=== PATIENT | male | born 1965 | race Caucasian/White ===

== ENCOUNTER 2020-03-12 11:38 | Inpatient (IN) ==
[2020-03-12] MEDS ORDERED: ASPIRIN CHEW 324 MG PO STA (12:04)
[2020-03-12] MEDS ORDERED: MoRPHine SULFATE 4 MG/ML 1 ML CARP\\VIAL IV STA (12:04)
[2020-03-12] MEDS ORDERED: ONDANSETRON INJ 2 MG/ML 2 ML VIAL IV STA (12:04)
[2020-03-12] MEDS ORDERED: METOPROLOL TARTRATE 1 MG/ML VIAL IV STA ×2 (12:04→13:13)
--- NOTE | 2020-03-12 12:06 | Emergency Department Note ---
Impression & Plan Chest pain, Abnormal ECG, Elevated troponin I level, Hypertension, NSTEMI (non- ST elevated myocardial infarction) ED Provider Note NAME: TERESSA JALLOH AGE: 55 SEX: M : 1965 ARRIVES VIA: Walk-In INFORMANT: Patient, ED PROVIDER(S): Dwayne Dinero DO CHIEF COMPLAINT: Chest pain HPI: The patient is a 55-year-old male who presented to the emergency department for an evaluation of chest pain. The patient states that he has been experiencing left-sided chest pain for the last 3 months. He notices this pain is intermittent. He states the pain is on his left upper chest and radiates to his left axilla left arm and left neck. Recently he started to notice a headache behind his left eye with this chest pain. The pain is worsened with exertion. It is sometimes relieved with rest. The patient also notices that the pain is in his left upper back as well. He notices no nausea or vomiting. He has no shortness of breath. He is noticed no leg swelling or leg pain. The patient is not been seen by his primary care physician for these complaints. He has no heart conditions as far as he knows. He does take medication for high blood pressure and states that he has been compliant with his medication. He states his pain is mild to moderate at this time. He did not take any medication specifically for the chest pain. ROS: See above HPI for pertinent positives & negatives. A total of 10 systems reviewed and were otherwise negative. PAST MEDICAL HISTORY: See Below PAST SURGICAL HISTORY: See Below FAMILY HISTORY: See Below SOCIAL HISTORY: See Below HOME MEDICATIONS: See Below ALLERGIES: See Below VITALS: See Below PHYSICAL EXAMINATION: GENERAL: Patient is awake alert in no acute distress patient is resting comfortably and showing no signs of anxiety EYES: The conjunctivae are clear. The pupils are round and reactive. EARS, NOSE, MOUTH AND THROAT: The nose is without any evidence of any deformity. NECK: The neck is nontender and supple. RESPIRATORY: Normal respiratory effort is noted there is no evidence of wheezing rhonchi or rales CARDIOVASCULAR: Regular rate and rhythm noted there no murmurs rubs or gallops normal S1 normal S2. GASTROINTESTINAL: The abdomen is soft. Abdomen is nontender. MUSCULOSKELETAL/EXTREMITIES: There is no evidence of gross deformity full range of motion is noted in the hips and shoulders. SKIN: There is no obvious evidence of any rash. There are no petechiae, pallor or cyanosis noted. NEUROLOGIC: Patient is awake alert and oriented x3 strength is symmetric patellar reflexes are 2+ bilaterally MEDICAL DECISION MAKING: The patient is a 55-year-old male who presented to the emergency department for an evaluation of chest pain. The patient describes exertional left-sided chest pain which he has been experiencing for the last few months. The patient states the symptoms are starting to become worse and started to notice some with exertion. He started to notice his blood pressure was also very elevated. The patient complained of headache as well. I discussed the patient's laboratory and radiographic studies with him. He was treated with aspirin beta-blockers as well as pain medication in the emergency department. He was reevaluated multiple times. On subsequent reevaluation his symptoms were improved. The patient appeared to have a very abnormal EKG with some ischemic changes but also could be attributed to a strain pattern from LVH. His chest x-ray appeared to be consistent with cardiomegaly as well. I discussed his case with the on-call [facility] carpenter's helper. I also notified the [facility] hospitalist about this patient's condition. Likely the patient will require further inpatient work-up to evaluate the cause of his symptoms. Triage Nursing notes reviewed. Prior medical records reviewed Vital Signs: reviewed and remarkable for high blood pressure Differential diagnosis: Cardiac ischemia, aortic dissection, pulmonary embolism, pneumothorax, pneumonia, pericarditis, myocarditis, esophageal rupture, GERD, cholecystitis, pancreatitis, musculoskeletal, as well as other pathologies. ER treatment provided: See below Diagnostics interpreted by me: ECG: EKG was obtained in the emergency department. My interpretation is normal sinus rhythm at 71 bpm. There is no ectopy. Lateral T wave inversions were noted. There was low lateral ST depressions as well as high lateral ST depressions noted. LVH was noted by voltage criteria. There is no previous EKG for comparison. Cardiac Monitoring: An order was placed for continuous cardiac monitoring. The monitor shows a rate of 80 with sinus rhythm. Laboratory studies: As stated above and show below. Imaging studies: See below Consultation(s): 1300: I discussed this case with Dr. Lea who is on-call for [facility] cardiology. ED COURSE: Procedures: none PDMP:reviewed and no issues Critical Care: I have personally spent greater than 45 minutes of critical care time in the direct management of this patient. This includes bedside care, interpretation of diagnostic studies, and testing, discussion with consultants, patient, and family members, and other required patient management activities. This 45 min utes is in excess of all separately billable procedures. Past Med/Surg History Medical History (Updated 03/13/20 @ 08:35 by Dwayne Dinero DO) Coronary artery disease Hypertension Surgical History (Updated 03/13/20 @ 06:49 by Kristi Cruz DO) Hx of tonsillectomy S/P coronary artery stent placement (03/12/20) JERRY to RCA Social History Smoking Status: Current every day smoker Tobacco Cessation Education Requested by Patient: No Hx Alcohol Use: No Hx Substance Use: No Preferred Language: Chinese Communication Ability: Effective Back Office Medical Assistant Required: No Beliefs That Will Affect Care: None Current Living Situation: Spouse Other Information That Helps Us Care for You: No Feels Safe at Home: Yes Safety Concerns: Feels Safe At This Time Allergies Allergies Allergy/AdvReac Type Severity Reaction Status Date / Time azithromycin Allergy Swelling Unverified 03/12/20 13:09 of Lip/Tongue/Throat Home Meds Home Medications Medication Instructions Recorded Confirmed hydrochlorothiazide 25 mg PO DAILY 03/12/20 03/12/20 losartan 100 mg PO DAILY 03/12/20 03/12/20 metoprolol tartrate 50 mg PO BID 03/12/20 03/12/20 Results & Data (ED) Vital Signs Vital Signs - 24 hr 03/12/20 11:48 03/12/20 12:08 03/12/20 12:11 Temperature 37 C Temperature Source Oral Pulse Rate 71 71 Pulse Rate [Right Finger] Pulse Rate from SpO2 Sensor Respiratory Rate 16 Respiratory Effort / Characteristics Respiratory Depth Respiratory Pattern Blood Pressure 200/123 H 202/126 H Blood Pressure [Right Arm] Blood Pressure Mean 148 Blood Pressure Mean [Right Arm] Pulse Oximetry 95 96 Oxygen Delivery Method Room Air Room Air Sepsis Recent Fever Within 48 Hours No Sepsis New/Unexplained Change in Mental Status No Sepsis Action Taken by Nursing No Action Required 03/12/20 12:21 03/12/20 12:34 03/12/20 12:35 Temperature Temperature Source Pulse Rate 64 Pulse Rate [Right Finger] 70 Pulse Rate from SpO2 Sensor 66 Respiratory Rate 19 20 Respiratory Effort / Characteristics Non-Labored Respiratory Depth Normal Respiratory Pattern Blood Pressure 180/114 H 176/110 H Blood Pressure [Right Arm] 176/110 H Blood Pressure Mean 138 118 Blood Pressure Mean [Right Arm] 132 Pulse Oximetry 95 95 Oxygen Delivery Method Room Air Sepsis Recent Fever Within 48 Hours Sepsis New/Unexplained Change in Mental Status Sepsis Action Taken by Nursing 03/12/20 13:08 03/12/20 13:23 03/12/20 13:25 Temperature Temperature Source Pulse Rate 63 68 71 Pulse Rate [Right Finger] Pulse Rate from SpO2 Sensor 63 68 Respiratory Rate 12 15 Respiratory Effort / Characteristics Respiratory Depth Respiratory Pattern Blood Pressure 160/102 H 204/114 H 204/114 H Blood Pressure [Right Arm] Blood Pressure Mean 127 149 Blood Pressure Mean [Right Arm] Pulse Oximetry 94 97 Oxygen Delivery Method Sepsis Recent Fever Within 48 Hours Sepsis New/Unexplained Change in Mental Status Sepsis Action Taken by Nursing 03/12/20 13:30 03/12/20 14:00 03/12/20 14:16 Temperature Temperature Source Pulse Rate 71 58 L 66 Pulse Rate [Right Finger] Pulse Rate from SpO2 Sensor 71 60 66 Respiratory Rate 15 13 9 L Respiratory Effort / Characteristics Respiratory Depth Respiratory Pattern Blood Pressure 181/130 H 183/103 H 169/101 H Blood Pressure [Right Arm] Blood Pressure Mean 154 131 123 Blood Pressure Mean [Right Arm] Pulse Oximetry 95 94 94 Oxygen Delivery Method Sepsis Recent Fever Within 48 Hours Sepsis New/Unexplained Change in Mental Status Sepsis Action Taken by Nursing 03/12/20 14:30 03/12/20 14:35 03/12/20 14:36 Temperature Temperature Source Pulse Rate 66 70 68 Pulse Rate [Right Finger] Pulse Rate from SpO2 Sensor 66 72 69 Respiratory Rate 15 21 13 Respiratory Effort / Characteristics Respiratory Depth Respiratory Pattern Blood Pressure 144/91 H 151/93 H 145/93 H Blood Pressure [Right Arm] Blood Pressure Mean 110 102 104 Blood Pressure Mean [Right Arm] Pulse Oximetry 93 95 94 Oxygen Delivery Method Sepsis Recent Fever Within 48 Hours Sepsis New/Unexplained Change in Mental Status Sepsis Action Taken by Nursing 03/12/20 15:09 03/12/20 15:30 03/12/20 17:30 Temperature 36.5 C Temperature Source Oral Pulse Rate 67 63 Pulse Rate [Right Finger] 59 L Pulse Rate from SpO2 Sensor 62 63 Respiratory Rate 12 15 16 Respiratory Effort / Characteristics Non-Labored Spontaneous Normal for Patient Respiratory Depth Normal Respiratory Pattern Regular Blood Pressure 156/92 H 138/87 Blood Pressure [Right Arm] 118/63 Blood Pressure Mean 113 97 Blood Pressure Mean [Right Arm] 81 Pulse Oximetry 94 94 92 Oxygen Delivery Method Room Air Room Air Room Air Sepsis Recent Fever Within 48 Hours Sepsis New/Unexplained Change in Mental Status Sepsis Action Taken by Nursing 03/12/20 17:45 Temperature Temperature Source Pulse Rate Pulse Rate [Right Finger] 59 L Pulse Rate from SpO2 Sensor Respiratory Rate 16 Respiratory Effort / Characteristics Respiratory Depth Respiratory Pattern Blood Pressure Blood Pressure [Right Arm] 120/80 Blood Pressure Mean Blood Pressure Mean [Right Arm] 93 Pulse Oximetry 94 Oxygen Delivery Method Sepsis Recent Fever Within 48 Hours Sepsis New/Unexplained Change in Mental Status Sepsis Action Taken by [facility] Medications Current Medication List: was personally reviewed by me Laboratory Data Attestation: I reviewed the patient's lab results. Result diagrams: 03/13/20 05:23 03/13/20 05:23 Lab Results 03/12/20 03/12/20 03/12/20 Range/Units 12:00 12:00 12:00 WBC 11.99 H (4.8-10.8) K/uL RBC 5.69 (4.7-6.1) M/uL Hgb 16.5 (14.0-18.0) g/dL Hct 48.2 (42-52) % MCV 84.7 (80-100) fL MCH 29.0 (25-34) pg MCHC 34.2 (32-36) g/dL RDW Std Deviation 43.8 (36.4-46.3) fL RDW Coeff of Les 14.2 (11.5-14.5) % Plt Count 243 (130-400) K/uL MPV 11.9 H (7.4-10.4) fL Immature Gran % (Auto) 0.4 % Neut % (Auto) 63.1 % Lymph % (Auto) 27.4 % [place] % (Auto) 8.1 % Eos % (Auto) 0.8 % Baso % (Auto) 0.2 % Neut # (Auto) 7.57 H (1.4-6.5) K/uL Lymph # (Auto) 3.29 (1.2-3.4) K/uL [place] # (Auto) 0.97 H (0.11-0.59) K/uL Eos # (Auto) 0.09 (0-0.5) K/uL Baso # (Auto) 0.02 (0-0.2) K/uL Immature Gran # (Auto) 0.05 H (0.00-0.02) K/uL PT 10.2 (9.0-12.0) Seconds INR 1.0 (0.9-1.1) APTT 30.8 (21.0-31.0) Seconds PTT Ratio 1.1 Activ Coag Time Kaolin (94-140) SECONDS Sodium 137 (136-145) mmol/L Potassium (3.5-5.1) mmol/L Chloride 105 (98-107) mmol/L Carbon Dioxide 26 (21-32) mmol/L Anion Gap 6.0 (3-11) BUN 17 (7-18) mg/dl Creatinine 1.04 (0.6-1.4) mg/dl Est Cr Clr Drug Dosing 89.1 ml/min Est GFR ( Amer) 94.6 Est GFR (Non-Af Amer) 81.6 BUN/Creatinine Ratio 16.0 (10-20) Glucose 155 H (70-99) mg/dl Calcium 8.7 (8.5-10.1) mg/dl Total Bilirubin 0.6 (0.2-1) mg/dl AST (15-37) U/L ALT 38 (12-78) U/L Alkaline Phosphatase 111 (45-117) U/L Troponin I 0.219 H* (0-0.045) ng/ml Total Protein 7.2 (6.4-8.2) gm/dl Albumin 3.4 (3.4-5.0) gm/dl Globulin 3.8 (2.5-4.0) gm/dl Albumin/Globulin Ratio 0.9 (0.9-2) Lipase 162 (73-393) U/L 03/12/20 03/12/20 Range/Units 12:00 16:58 WBC (4.8-10.8) K/uL RBC (4.7-6.1) M/uL Hgb (14.0-18.0) g/dL Hct (42-52) % MCV (80-100) fL MCH (25-34) pg MCHC (32-36) g/dL RDW Std Deviation (36.4-46.3) fL RDW Coeff of Les (11.5-14.5) % Plt Count (130-400) K/uL MPV (7.4-10.4) fL Immature Gran % (Auto) % Neut % (Auto) % Lymph % (Auto) % [place] % (Auto) % Eos % (Auto) % Baso % (Auto) % Neut # (Auto) (1.4-6.5) K/uL Lymph # (Auto) (1.2-3.4) K/uL [place] # (Auto) (0.11-0.59) K/uL Eos # (Auto) (0-0.5) K/uL Baso # (Auto) (0-0.2) K/uL Immature Gran # (Auto) (0.00-0.02) K/uL PT (9.0-12.0) Seconds INR (0.9-1.1) APTT (21.0-31.0) Seconds PTT Ratio Activ Coag Time Kaolin 268 H (94-140) SECONDS Sodium (136-145) mmol/L Potassium 3.6 (3.5-5.1) mmol/L Chloride (98-107) mmol/L Carbon Dioxide (21-32) mmol/L Anion Gap (3-11) BUN (7-18) mg/dl Creatinine (0.6-1.4) mg/dl Est Cr Clr Drug Dosing ml/min Est GFR ( Amer) Est GFR (Non-Af Amer) BUN/Creatinine Ratio (10-20) Glucose (70-99) mg/dl Calcium (8.5-10.1) mg/dl Total Bilirubin (0.2-1) mg/dl AST 21 (15-37) U/L ALT (12-78) U/L Alkaline Phosphatase (45-117) U/L Troponin I (0-0.045) ng/ml Total Protein (6.4-8.2) gm/dl Albumin (3.4-5.0) gm/dl Globulin (2.5-4.0) gm/dl Albumin/Globulin Ratio (0.9-2) Lipase (73-393) U/L Administered Medications Acetaminophen (Acetaminophen 325 Mg Tab) 650 mg PO Q4H PRN PRN Reason: MILD Pain (Scale 1,2,3) Stop: 04/11/20 17:20 Last Admin: 03/12/20 23:24 Dose: 650 mg Documented by: [id number] Metoprolol Tartrate (Metoprolol Tartrate 50 Mg Tab) 50 mg PO BID [facility] Stop: 04/11/20 20:59 Last Admin: 03/12/20 20:22 Dose: 50 mg Documented by: [id number] Discontinued Medications Aspirin (Aspirin Chew 324 Mg) 324 mg PO NOW STA Stop: 03/12/20 12:05 Last Admin: 03/12/20 12:11 Dose: 324 mg Documented by: [id number] Fentanyl Citrate (Fentanyl Citrate 100 Mcg/2 Ml Vial) Confirm Administered Dose 100 mcg .ROUTE .STK-MED ONE Stop: 03/12/20 15:20 Last Increment: 03/12/20 17:08 Dose: 50 mcg Documented by: [id number] Heparin Sodium (Porcine) (Heparin (Porcine) 1000 Unit/Ml 10 Ml (Cardiovascular Technician Use Only)) Confirm Administered Dose 10,000 units .ROUTE .STK-MED ONE Stop: 03/12/20 16:00 Last Admin: 03/12/20 16:46 Dose: 10,000 units Documented by: [id number] Heparin Sodium/Sodium Chloride (Heparin In Nss Infusion 1000 Unit/500 Ml (2 U/Ml) Bag) Confirm Administered Dose 3,000 units IV .STK-MED ONE Stop: 03/12/20 15:20 Last Admin: 03/12/20 16:46 Dose: 3,000 units Documented by: [id number] Hydralazine HCl (Hydralazine Hcl 20 Mg/Ml Vial) 10 mg IV NOW STA Stop: 03/12/20 14:04 Last Admin: 03/12/20 14:08 Dose: 10 mg Documented by: [id number] Sodium Chloride (Nss 1000ml) 500 mls @ 100 mls/hr IV .Q5H JIMBO Stop: 03/12/20 22:29 Last Infusion: 03/12/20 23:25 Dose: 0 mls/hr Documented by: [id number] Admin: 03/12/20 18:26 Dose: 100 mls/hr Documented by: [id number] Metoprolol Tartrate (Metoprolol Tartrate 1 Mg/Ml Vial) 5 mg IV NOW STA Stop: 03/12/20 12:05 Last Admin: 03/12/20 12:11 Dose: 5 mg Documented by: [id number] Metoprolol Tartrate (Metoprolol Tartrate 1 Mg/Ml Vial) 5 mg IV NOW STA Stop: 03/12/20 13:14 Last Admin: 03/12/20 13:25 Dose: 5 mg Documented by: [id number] Midazolam HCl (Midazolam Hcl 1 Mg/Ml 2ml Vial) Confirm Administered Dose 2 mg .ROUTE .STK-MED ONE Stop: 03/12/20 15:21 Last Increment: 03/12/20 17:08 Dose: 1 mg Documented by: [id number] Morphine Sulfate (Morphine Sulfate 4 Mg/Ml 1 Ml Carp\Vial) 4 mg IV NOW STA Stop: 03/12/20 12:05 Last Admin: 03/12/20 12:11 Dose: 4 mg Documented by: [id number] Nicardipine HCl (Nicardipine Hcl Inj 2.5 Mg/Ml 10 Ml Amp) Confirm Administered Dose 25 mg .ROUTE .STBlue Saint-MED ONE Stop: 03/12/20 15:20 Last Admin: 03/12/20 16:45 Dose: 25 mg Documented by: [id number] Nitroglycerin/Dextrose (Nitroglycerin/D5w 100mcg/Ml 20ml Syr) Confirm Administered Dose 2,000 mcg .ROUTE .STBlue Saint-MED ONE Stop: 03/12/20 15:20 Last Admin: 03/12/20 16:46 Dose: 2,000 mcg Documented by: [id number] Ondansetron HCl (Ondansetron Inj 2 Mg/Ml 2 Ml Vial) 4 mg IV NOW STA Stop: 03/12/20 12:05 Last Admin: 03/12/20 12:11 Dose: 4 mg Documented by: [id number] Ticagrelor (Ticagrelor 90 Mg Tab) Confirm Administered Dose 180 mg PO .STBlue Saint-MED ONE Stop: 03/12/20 17:08 Last Admin: 03/12/20 17:08 Dose: 180 mg Documented by: [id number] Imaging Data Radiologist's Impression: CT OF THE HEAD WITHOUT CONTRAST CLINICAL HISTORY: Headache. COMPARISON STUDY: No previous studies for comparison. CT DOSE: 537.48 mGy.cm TECHNIQUE: Helical axial images of the head were obtained without IV contrast. Automated exposure control was utilized for the study. A dose lowering technique was utilized adhering to the principles of ALARA. FINDINGS: No acute intracranial hemorrhage, midline shift or mass effect is present. The ventricular system is unremarkable. The basilar cisterns are patent. No extra-axial collections are present. There are no findings to suggest acute dural sinus thrombosis or acute territorial infarct. No significant calvarial abnormalities are present. Visualized portions of the sinuses are clear. Left mastoid air cells are partially opacified. IMPRESSION: 1. No acute intracranial findings. 2. Partially opacified left mastoid air cells. ACT 112: Negative or not required by law. Electronically signed by: Eugene Palomo M.D. 03/12/2020 12:54 PM Dictated: 03/12/20 1252 Transcribed: 03/12/20 1252 XR chest 1V portable HISTORY: 55 years-old Male Chest Pain acute atypical chest pain COMPARISON: None TECHNIQUE: Portable AP view of the chest FINDINGS: Cardiac silhouette is mildly enlarged. No pneumothorax, pleural effusion, airspace consolidation or overt pulmonary edema. Bones of the chest appear grossly intact. IMPRESSION: No acute process. ACT 112: Negative or not required by law. The above report was generated using voice recognition software. It may contain grammatical, syntax or spelling errors. Electronically signed by: Tremayne Kulkarni M.D. 03/12/2020 1:08 PM Dictated: 03/12/20 1307 Transcribed: 03/12/20 1307 Blood Pressure Blood Pressure Findings: Elevated blood pressure Blood Pressure Disposition: further management by hospitalist Discharge Plan Visit Data Chief Complaint: Chest Pain Stated Complaint: SENT BY DR Jeet KEMP: HIGH BLOOD PRESSURE, CHEST PAIN ED Provider: Dwayne Dinero Discharge Problem: Chest pain, Abnormal ECG, Elevated troponin I level, Hypertension, NSTEMI (non- ST elevated myocardial infarction) Patient Disposition: Being Evaluated by Hospitalist Condition: Good Discharge Instructions Interventions: ED Discharge Assessment Last Done: 03/12/20 15:58 Discharge Problem: Chest pain Qualifiers: Chest pain type: unspecified Qualified Code(s): R07.9 - Chest pain, unspecified Hypertension Qualifiers: Hypertension type: unspecified Qualified Code(s): I10 - Essential (primary) hyp ertension
[2020-03-12 12:12] LABS: Basophils # (auto) 0.02 K/uL (0-0.2); Basophils % (auto) 0.2 %; Eosinophils # (auto) 0.09 K/uL (0-0.5); Eosinophils % (auto) 0.8 %; Hematocrit (blood only) 48.2 % (42-52); Hemoglobin 16.5 g/dL (14.0-18.0); Immature Granulocytes # (auto) 0.05 K/uL (0.00-0.02); Immature Granulocytes % (auto) 0.4 %; Lymphocytes # (auto) 3.29 K/uL (1.2-3.4); Lymphocytes % (auto) 27.4 %; Mean Corpuscular Hgb Conc 34.2 g/dL (32-36); Mean Corpuscular Volume 84.7 fL (80-100); Mean Platelet Volume 11.9 fL (7.4-10.4); Monocytes # (auto) 0.97 K/uL (0.11-0.59); Monocytes % (auto) 8.1 %; Neutrophils # (auto) 7.57 K/uL (1.4-6.5); Neutrophils % (auto) 63.1 %; Platelet Count 243 K/uL (130-400); RDW Coefficient of Variation 14.2 % (11.5-14.5); RDW Standard Deviation 43.8 fL (36.4-46.3); Red Blood Count 5.69 M/uL (4.7-6.1); White Blood Count 11.99 K/uL (4.8-10.8)
[2020-03-12 12:23] LABS: Partial Thromboplastin Ratio 1.1; Partial Thromboplastin Time 30.8 Seconds (21.0-31.0); Prothrombin Time 10.2 Seconds (9.0-12.0)
--- NOTE | 2020-03-12 12:40 | Electrocardiogram Report ---
Test Reason : Blood Pressure : / mmHG Vent. Rate : 071 BPM Atrial Rate : 071 BPM P-R Int : 146 ms QRS Dur : 096 ms QT Int : 424 ms P-R-T Axes : 032 064 152 degrees QTc Int : 460 ms Normal sinus rhythm Left atrial enlargement Left ventricular hypertrophy with repolarization abnormality Abnormal ECG No previous ECGs available Confirmed by Dwayne Lea ([id number]) on 03/12/2020 12:40:20 PM Referred By: Confirmed By:Dwayne Lea
[2020-03-12 12:51] LABS: Albumin Globulin Ratio 0.9 (0.9-2); Albumin Level 3.4 gm/dl (3.4-5.0); Bilirubin,Total 0.6 mg/dl (0.2-1); Calcium 8.7 mg/dl (8.5-10.1); Creatinine Clr Calc Pharmacy 89.1 ml/min; Est GFR (African American) 94.6; Est GFR (Non-African American) 81.6; Globulin 3.8 gm/dl (2.5-4.0); Total Protein 7.2 gm/dl (6.4-8.2); Troponin I 0.219 ng/ml (0-0.045)
--- NOTE | 2020-03-12 12:55 | CT Scan Report ---
CT OF THE HEAD WITHOUT CONTRAST CLINICAL HISTORY: Headache. COMPARISON STUDY: No previous studies for comparison. CT DOSE: 537.48 mGy.cm TECHNIQUE: Helical axial images of the head were obtained without IV contrast. Automated exposure con trol was utilized for the study. A dose lowering technique was utilized adhering to the principles o f ALARA. FINDINGS: No acute intracranial hemorrhage, midline shift or mass effect is present. The ventricular system is unremarkable. The basilar cisterns are patent. No extra-axial collections are present. Ther e are no findings to suggest acute dural sinus thrombosis or acute territorial infarct. No significan t calvarial abnormalities are present. Visualized portions of the sinuses are clear. Left mastoid air cells are partially opacified. IMPRESSION: 1. No acute intracranial findings. 2. Partially opacified left mastoid air cells. ACT 112: Negative or not required by law. Electronically signed by: Eugene Palomo M.D. 03/12/2020 12:54 PM
--- NOTE | 2020-03-12 13:09 | XRay Report ---
XR chest 1V portable HISTORY: 55 years-old Male Chest Pain acute atypical chest pain COMPARISON: None TECHNIQUE: Portable AP view of the chest FINDINGS: Cardiac silhouette is mildly enlarged. No pneumothorax, pleural effusion, airspace consolidation or o vert pulmonary edema. Bones of the chest appear grossly intact. IMPRESSION: No acute process. ACT 112: Negative or not required by law. The above report was generated using voice recognition software. It may contain grammatical, syntax o r spelling errors. Electronically signed by: Tremayne Kulkarni M.D. 03/12/2020 1:08 PM
[2020-03-12 13:15] LABS: Potassium 3.6 mmol/L (3.5-5.1)
[2020-03-12] MEDS ORDERED: HydrALAZINE HCL 20 MG/ML VIAL IV STA (14:03)
--- NOTE | 2020-03-12 14:06 | History & Physical Report ---
Date of Service March 12, 2020 Assessment & Plan (1) NSTEMI (non-ST elevated myocardial infarction): ASA 324 mg PO given in ER. Continue 81 mg daily. Minimal ongoing pain after morphine given. Consult cardiology. 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 Not for IV heparin at present time. Pending results of catheterization HbA1c and lipid panel in a.m. (2) Hypertension: Hydralazine 10 mg IV given in ER with much better control of his blood pressure. 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 This is been going on for the last 2.5 months intermittently worse on exertion. It occurs on the left side of his chest radiating to his back and occasionally to his left arm and hand. Associated headache. Previously intermittent on exertion and would resolve with rest but for the last 1-2 weeks if has been coming on at rest in addition. I was the most severe last night with 10/10 pain that he could not complete his work and had to go home. Last time the pain was 10/10 @ 8am this morning. He is under increased stress recently with his having cancer and 2 young children at home. Allergies Allergy/AdvReac Type Severity Reaction Status Date / Time azithromycin Allergy Swelling Unverified 03/12/20 13:09 of Lip/Tongue/Throat Home Medications Home Medications Medication Instructions Recorded Confirmed Type hydrochlorothiazide 25 mg PO DAILY 03/12/20 03/12/20 History losartan 100 mg PO DAILY 03/12/20 03/12/20 History metoprolol tartrate 50 mg PO BID 03/12/20 03/12/20 History Past Med/Surg History Medical History Coronary artery disease Hypertension Surgical History Hx of tonsillectomy S/P coronary artery stent placement (03/12/20) JERRY to RCA Social History Smoking Status: Current every day smoker Tobacco Cessation Education Requested by Patient: No Hx Alcohol Use: No Hx Substance Use: No Preferred Language: Malay Communication Ability: Effective Lacing String Cutter Required: No Beliefs That Will Affect Care: None Current Living Situation: Spouse Other Information That Helps Us Care for You: No Feels Safe at Home: Yes Safety Concerns: Feels Safe At This Time Review of Systems Review of Systems: All systems reviewed & are unremarkable except as noted in HPI & below Physical Exam Constitutional: well developed and well nourished; no acute distress Eyes: PERRL, conjunctivae normal, anicteric sclerae ENMT: external ear and nose normal, oropharynx normal Neck: trachea midline, no thyromegaly Respiratory: normal respiratory effort, lungs clear to auscultation Cardiovascular: RRR, no murmur, no edema Vessels: radial pulses present (equal b/l, BP equal b/l) Extremities: normal capillary refill; no calf tenderness Gastrointestinal (Abdomen): normal bowel sounds, soft, nontender, no hepatosplenomegaly Musculoskeletal: no cyanosis or clubbing, extremities motor strength 5/5 Skin: no rashes, warm and dry Neurologic: moves all extremities and awake; not confused Psychiatric: A+Ox3, euthymic affect Genitourinary: no CVA tenderness Lymphatic: no cervical or axillary lymphadenopathy Results & Data Results & Data ([facility]) Vital Signs (Past 12 Hours) Vital Signs Temp Pulse Pulse Resp BP BP Pulse Ox 03/12/20 13:30 71 15 181/130 H 95 03/12/20 13:25 71 204/114 H 03/12/20 13:23 68 15 204/114 H 97 03/12/20 13:08 63 12 160/102 H 94 03/12/20 12:35 70 20 176/110 H 95 03/12/20 12:34 176/110 H 03/12/20 12:21 64 19 180/114 H 95 03/12/20 12:11 71 202/126 H 03/12/20 12:08 96 03/12/20 11:48 37 C 71 16 200/123 H 95 Diagnostic Findings XR chest 1V portable IMPRESSION: No acute process. CT OF THE HEAD WITHOUT CONTRAST IMPRESSION: 1. No acute intracranial findings. 2. Partially opacified left mastoid air cells. ECG Indication: chest pain Rate (beats per minute): 71 Rhythm: normal sinus Findings: + other ([facility]) Comparison ECG Date: no prior available Code Status & VTE Plan Code Status Full VTE Prophylaxis Plan VTE Prophylaxis will be ordered: Yes PG Care Time/CCT Total # of Minutes Spent Total Time Spent with Patient: Total time spent is greater than 50% in coordination of care (as documented) at patient's floor/unit and/or counseling patient: Coding Level of Care Code 18756 Initial Inpt Care Lvl 2 Diagnoses NSTEMI (non-ST elevated myocardial infarction) I21.4 Hypertension I10 Hypertension type: unspecified Tobacco use disorder F17.200 (1) Hypertension Hypertension type: unspecified Qualified Code(s): I10 - Essential (primary) hypertension
--- NOTE | 2020-03-12 14:22 | Cardiology Consultation ---
Date of Consultation March 12, 2020 Assessment & Plan (1) Chest pain: -history suggests 2.5 months of progressive exertional angina pectoris. -experienced symptoms at rest last evening lasting 4-5 hours. -recurrence of symptoms this morning. -abnormal EKG and elevated troponin noted. -echo notes normal systolic function without wall motion abnormalities. -patient now pain-free after injection of morphine. -will need a cardiac catheterization. Discussed with Dr. Andrews. (2) Abnormal ECG: -tracing consistent with left ventricular hypertrophy and significant repolarization changes. -echo confirms significant left ventricular hypertrophy. (3) Elevated troponin I level: -initial troponin elevated 0.219. (4) Hypertension: -suspect his blood pressures been poorly controlled for some time. -significant LVH on his echocardiogram -would use an intravenous agent frequently (metoprolol tartrate or hydralazine). -continue outpatient hydrochlorothiazide, metoprolol tartrate, and losartan. History of Present Illness History of Present Illness Mr. Lyon is a 55-year-old male seen in the emergency room at Dr. Dinero' request. The patient presents today with a chest pain syndrome. The patient claims use in his usual state of health until approximately 2 and half months ago when he began to note left-sided chest discomfort radiating to the left shoulder and left arm with physical activity. There was also associated diaphoresis on occasion. He never experienced concurrent shortness of breath, nausea, or vomiting. The patient explains that his chest discomfort has been progressive and now occurs with minimal physical activity. Last evening, at approximately 9:00 p.m., the patient developed his symptoms as described after walking up the stairs to go to bed. His symptoms persisted until approximately 2:00 a.m. when he was finally able to fall asleep. He woke at 6:00 a.m. again noting his left- sided chest discomfort as described above. He presented to the emergency room for further care. On arrival here, patient was significantly hypertensive with a blood pressure of 200/120. His EKG was significantly abnormal and his initial troponin level was elevated 0.219. The patient received several doses of intravenous metoprolol and 1 dose of intravenous morphine. He is now pain-free. The patient has never known of a cardiac event. He has never had a cardiac catheterization. He does admit to refractory hypertension. His care was previously through the [place] system, however, he is transferring his medical records to Dr. Cruz. Past medical and surgical history 1. Hypertension 2. Severe LVH 3. 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 Smokes 1/2 pack cigarettes daily for the last 20 years No alcohol Family history Father 74 and had bypass surgery performed in his 60s. Mother is 70 with hypertension Review of systems A 10 point review systems was undertaken and negative except for that described above. Allergies Allergy/AdvReac Type Severity Reaction Status Date / Time azithromycin Allergy Swelling Unverified 03/12/20 13:09 of Lip/Tongue/Throat Home Medications Home Medications Medication Instructions Recorded Confirmed Type hydrochlorothiazide 25 mg PO DAILY 03/12/20 03/12/20 History losartan 100 mg PO DAILY 03/12/20 03/12/20 History metoprolol tartrate 50 mg PO BID 03/12/20 03/12/20 History Patient History Medical History Hypertension Surgical History Hx of tonsillectomy Social History Smoking Status: Current every day smoker Feels Safe at Home: Yes Physical Exam Physical Exam: In general this is a well-developed well-nourished white male in no acute distress. HEENT exam is negative. Neck is supple with full carotid upstrokes. There are no carotid bruits. Jugular venous pressure is flat at 90. There is no thyromegaly. Cardiovascular exam reveals a regular rhythm with a normal S1 and S2. No S3, S4, or murmurs are noted. Lungs are clear without rales, rhonchi, or wheezes. Abdomen is soft and nontender without bruits. Extremities reveal intact radial artery and posterior tibial pulses bilaterally. There is no peripheral edema. Results & Data ([facility]) Vital Signs (Past 12 Hours) Vital Signs Temp Pulse Pulse Resp BP BP Pulse Ox 03/12/20 14:00 58 L 13 183/103 H 94 03/12/20 13:30 71 15 181/130 H 95 03/12/20 13:25 71 204/114 H 03/12/20 13:23 68 15 204/114 H 97 03/12/20 13:08 63 12 160/102 H 94 03/12/20 12:35 70 20 176/110 H 95 03/12/20 12:34 176/110 H 03/12/20 12:21 64 19 180/114 H 95 03/12/20 12:11 71 202/126 H 03/12/20 12:08 96 03/12/20 11:48 37 C 71 16 200/123 H 95 Laboratory Results CBC notes hemoglobin of 16.5, hematocrit 40.2, white count 11.99, and platelet of [id number]. Electrolytes noted sodium 137, potassium 3.6, chloride 105, bicarb 26, BUN 17, creatinine 1.04, and glucose of 155. Troponin I level is elevated 0.219. Diagnostic Findings EKG notes normal sinus rhythm and left ventricular hypertrophy with significant repolarization changes. Echocardiogram performed urgently in the emergency room noted normal left ventricular systolic function without wall motion abnormalities. There is significant left ventricular hypertrophy and moderate mitral regurgitation. PG Care Time/CCT Total # of Minutes Spent Total Time Spent with Patient: Total time spent is greater than 50% in coordination of care (as documented) at patient's floor/unit and/or counseling patient: Coding Level of Care Code 63943 Office/OBS Consult Lvl 5 Diagnoses Chest pain R07.9 Chest pain type: unspecified Abnormal ECG R94.31 Elevated troponin I level R79.89 Hypertension I10 Hypertension type: unspecified (1) Chest pain Chest pain type: unspecified Qualified Code(s): R07.9 - Chest pain, unspecified (2) Hypertension Hypertension type: unspecified Qualified Code(s): I10 - Essential (primary) hypertension
--- NOTE | 2020-03-12 15:18 | XCELERA ---
[id number]
[2020-03-12] MEDS ORDERED: NiCARDipine HCL INJ 2.5 MG/ML 10 ML AMP ONE (15:19)
[2020-03-12] MEDS ORDERED: NITROGLYCERIN/D5W 100MCG/ML 20ML SYR ONE (15:19)
[2020-03-12] MEDS ORDERED: fentaNYL citrate 100 MCG/2 ML VIAL ONE (15:19)
[2020-03-12] MEDS ORDERED: MIDAZOLAM HCL 1 MG/ML 2ML VIAL ONE (15:20)
[2020-03-12] MEDS ORDERED: HEPARIN (PORCINE) 1000 UNIT/ML 10 ML (CATH LAB USE ONLY) ONE (15:59)
--- NOTE | 2020-03-12 16:30 | Pre Anesthesia Assessment ---
Date of Service March 12, 2020 Pre Sedation Assessment Vital Signs Temp Pulse Pulse Resp BP BP Pulse Ox 03/12/20 15:30 63 15 138/87 94 03/12/20 15:09 67 12 156/92 H 94 03/12/20 14:36 68 13 145/93 H 94 03/12/20 14:35 70 21 151/93 H 95 03/12/20 14:30 66 15 144/91 H 93 03/12/20 14:16 66 9 L 169/101 H 94 03/12/20 14:00 58 L 13 183/103 H 94 03/12/20 13:30 71 15 181/130 H 95 03/12/20 13:25 71 204/114 H 03/12/20 13:23 68 15 204/114 H 97 03/12/20 13:08 63 12 160/102 H 94 03/12/20 12:35 70 20 176/110 H 95 03/12/20 12:34 176/110 H 03/12/20 12:21 64 19 180/114 H 95 03/12/20 12:11 71 202/126 H 03/12/20 12:08 96 03/12/20 11:48 98.6 F 71 16 200/123 H 95 Cardiovascular RRR, no murmur, no edema Respiratory normal respiratory effort, lungs clear to auscultation Pre-Sedation Airway Assessment Smoking Status: Current every day smoker Hx Sleep Apnea: No Hx Difficult Intubation: No Short, Thick Neck: No Thyromental Distance: > or= 3.5 Finger Breadths Oral Cavity: + WNL Mallampati Class: III ASA: ASA3 Procedure Planning Contraindications for Sedation: none Current Medications Reviewed: Yes Notes The planned sedation has been discussed with the patient. Informed Consent was obtained. I have identified the patient, determined the appropriateness of sedation and have assessed the patient immediately prior to the procedure. All medicine(s) and interventions are by my order.
[2020-03-12] MEDS ORDERED: TICAGRELOR 90 MG TAB PO ONE (17:07)
--- NOTE | 2020-03-12 17:19 | Post Anesthesia Assessment ---
Date of Service March 12, 2020 Post Sedation Assessment Vital Signs Temp Pulse Pulse Resp BP BP Pulse Ox 03/12/20 15:30 63 15 138/87 94 03/12/20 15:09 67 12 156/92 H 94 03/12/20 14:36 68 13 145/93 H 94 03/12/20 14:35 70 21 151/93 H 95 03/12/20 14:30 66 15 144/91 H 93 03/12/20 14:16 66 9 L 169/101 H 94 03/12/20 14:00 58 L 13 183/103 H 94 03/12/20 13:30 71 15 181/130 H 95 03/12/20 13:25 71 204/114 H 03/12/20 13:23 68 15 204/114 H 97 03/12/20 13:08 63 12 160/102 H 94 03/12/20 12:35 70 20 176/110 H 95 03/12/20 12:34 176/110 H 03/12/20 12:21 64 19 180/114 H 95 03/12/20 12:11 71 202/126 H 03/12/20 12:08 96 03/12/20 11:48 98.6 F 71 16 200/123 H 95 Recovery Score Activity: Moves 4 extremities Respiration: Deep Breath/Cough Circulation: +/-20% PreAnes Value Oxygen Saturation: O2 needed for >90% Discharge Sedation Level of Care: Fast Track Phase II Post Sedation Plan On clinical assessment, the patient appears to have tolerated the sedation without complications. Patient is recovering as anticipated. Patient will continue to be monitored by nursing and may be discharged when sedation discharge criteria are met per below protocol. Upon Completions of procedure up to 15 minutes continue every 5 minute vital signs and the P.A.R. score; then discharge to a Phase I or Fast Track to Phase II per the following guidelines: * Discharge Patient to appropriate Phase II area if PAR is 8 or greater or return to pre- procedure baseline. The post - procedure orders will be as directed. * If PAR score is less than 8 or not return to pre-procedure baseline then patient will follow Phase I monitoring till PAR is reached for Phase II. The Phase I may be done in procedure room or may call to secure a Phase I area. * If naloxone or flumazenil are used for reversal, hold in Phase I for continued monitoring from when last reversal dose was given for a minimum of 60 minutes or longer pending the nurse and/or physician discretion of patient condition before discharge to Phase II. Please call the Sedation Physician to re-evaluate and complete post-note for discharge to Phase II area. Do NOT discharge from procedure sedation or Phase 1 until post- sedation evaluation note is complete by procedure /sedation MD Sedation Discharge Instructions to be given to the patient at discharge to home.
[2020-03-12] MEDS ORDERED: ACETAMINOPHEN 325 MG TAB PO PRN (17:21)
[2020-03-12] MEDS ORDERED: ONDANSETRON INJ 2 MG/ML 2 ML VIAL IV PRN (17:21)
--- NOTE | 2020-03-12 17:21 | Post Operative Brief Note ---
Cardiology Brief Post Op Date of Surgery March 12, 2020 Pre & Post Diagnosis Operation Date: 03/12/20 15:00 <No data on this case meets the specified criteria> Procedure -- Vault Clerk Louis Andrews MD Tobacco Sampler [facility] Estimated Blood Loss 15 Findings See Below 95+% proximal RCA Moderate distal RCA disease Severe ostial OM3 disease Successful PCI of proximal RCA with single JERRY (3.5 x 18 mm [place]; post-dilated with 3.75 NC). Complications none Disposition Disposition: PCU
[2020-03-12] MEDS ORDERED: SODIUM CHLORIDE 0.9% 1000ML 500 ML IV SCH (17:30)
[2020-03-12] MEDS ORDERED: NITROGLYCERIN SL 0.4 MG/TAB TAB SL PRN (17:48)
[2020-03-12] MEDS: METOPROLOL TARTRATE 50 MG TAB PO SCH (20:22)
--- NOTE | 2020-03-12 21:16 | Cardiac Catheterization ---
[facility] Data: Cook Short Order Cardiac Status Clinical evaluation leading to the procedure CAD Presenation: Non STEMI Anginal Classification: CCS IV Heart Failure: No Cardiogenic Shock within 24 Hours: No Cardiac Arrest within 24 Hours: No Imaging Studies Past 6 Months: Yes Stress Studies Past 6 Months: No Diagnostic Physicians Name: Louis Andrews MD Status: Urgent Closure Device Percutaneous Entry Location: Radial Closure Device: Radial Band Recommendations: PCI without planned CABG PCI Indication: PCI for high risk Non-ISAAK Lesion Segment Name: proximal RCA Culprit Artery: Yes Stenosis Prior to Rx (%): 99 Chronic Total Occlusion: No IVUS: No FFR: No Pre-Procedure DUSTIN Flow: 2 Previously Treated Lesion: No Lesion Complexity: Non-High/Non-C Lesion Length (mm): 15 Thrombus Present: Yes Bifurcation Lesion: No Guidewire Across Lesion: Stenosis Post-Procedure (%): 0 Post-Procedure DUSTIN Flow: 3 Devices(s) Deployed: Yes Yes Intraprocedure Events Significant Disection: No Perforation: No Cardiac Cath Procedure Full Procedure Date March 12, 2020 Pre-Procedure Diagnosis Pre-Procedure Diagnosis: Non STEMI AUC Score AUC Score: 8 Post-Procedure Diagnosis Post-Procedure Diagnosis: Severe CAD, Successful PCI and Normal Intracardiac P ressures Procedure(s) Performed Procedure(s) Performed: Coronary Angiography, Left Heart Cath and Drug Eluting Stent Drilling And Production Superintendent Louis Andrews MD Career Portals Teacher(s) [place] Estimated Blood Loss Estimated Blood Loss: 15 Medication(s) Medication(s): Fentanyl, Heparin, Lidocaine 1%, Nicardipine, Nitroglycerin and Versed Medication(s): Ticagrelor Summary of Findings Indication: High risk NSTEMI Access: 6 Fr slender right radial artery Catheters: [place], JR4 guide Findings: LM -large caliber, luminal irregularities LAD -large caliber vessel, 30% proximal disease, mid segment luminal irregularities, distal vessel wraps around apex without significant disease. Medium caliber first diagonal without significant disease. 30% ostial stenosis of medium caliber second diagonal. Circumflex -large caliber vessel, 30% proximal to mid disease. 90% ostial OM 2 stenosis. Small distal left PLB with 95% ostial stenosis. RCA - dominant, medium caliber vessel, 99% proximal stenosis, 50 to 60% diffuse latemid into distal RCA disease. PDA without significant disease and DUSTIN II flow. LVEDP -7 -- PCI -- Antithrombotic therapy: Heparin, ticagrelor Procedure: RCA cannulated with JR4 guide Levers Lace Machine Operator 50 wire passed across lesion into distal vessel Proximal RCA lesion predilated with 2.5 compliant balloon Dilated lesion stented with 3.5 x 18 mm Kem drug-eluting stent Stent post-dilated with 3.75 noncompliant balloon IC vasodilators administered for spasm Post procedure DUSTIN 3 flow, stent well expanded with minimal residual stenosis and no apparent cardiac complications. Arterial Closure: TR band Summary: 1. Severe multivessel coronary artery disease -99% proximal RCA (acute culprit). 50 to 60% mid to distal RCA diffuse disease 90% proximal OM 2. Very small left PLB with 95% ostial stenosis. 2. Normal intracardiac filling pressure 3. Successful PCI of proximal RCA with single drug-eluting stent (3.5 x 18 mm Kem; postdilated with 3.75 NC). Recommendations: To PCU for continued monitoring Loaded with ticagrelor 180 mg in Cook Short Order Continue dual-antiplatelet therapy for at least 1 year Continue statin, and ASCVD risk factor modification Consult cardiac Rehab Maximize antianginal therapy. If limiting anginal symptoms in the future could consider PCI to OM 2 and/or FFR with as needed PCI of mid to distal RCA. Hemodynamics Rest Ao:: 108/69/87 Final Ao: 112/68/88 LV: 119/6 Recommendations Recommendations: PCI without planned CABG Specimens Specimens: None Radiation Exposure (mGy) 2313 Contrast (mls) 110 Fluids (cc crystalloids) Fluids (cc crystalloids): 100 Drains Drains: None Anesthesia Moderate Procedural Complication(s) None Disposition PCU I attest to the content of the Intraoperative Record and any orders documented therein. Any exceptions are noted below. [facility] Card Cath Procedure Codes Cardiac Catheterization Procedure 1: Cardiovascular Cath Procedures: 79237 Coronaries and LHC (+/-LV) Moderate Sedation Procedure 1: Sedation/Anesthesia: 90762 Mod Sedation by the same physician;Init15 Min Child Age 5 & Up Procedure 2: Sedation/Anesthesia: 52616 Mod Sedation by the same physician; Ea [id number] Minutes Stenting Procedure 1: Cardiovascular Stent Procedures: 05293 Perc transcatheter placement of intracoronary stent(s), with ang PG Care Time/CCT Total # of Minutes Spent Total Time Spent with Patient: Total time spent is greater than 50% in coordination of care (as documented) at patient's floor/unit and/or counseling patient:
[2020-03-13 05:33] LABS: Hematocrit (blood only) 46.5 % (42-52); Hemoglobin 15.8 g/dL (14.0-18.0); Mean Corpuscular Hemoglobin 28.9 pg (25-34); Mean Platelet Volume 11.3 fL (7.4-10.4); Platelet Count 228 K/uL (130-400); RDW Coefficient of Variation 14.3 % (11.5-14.5); RDW Standard Deviation 44.4 fL (36.4-46.3); Red Blood Count 5.47 M/uL (4.7-6.1); White Blood Count 13.18 K/uL (4.8-10.8)
[2020-03-13 05:51] LABS: BUN Creatinine Ratio 13.2 (10-20); Calcium 8.8 mg/dl (8.5-10.1); Creatinine Clr Calc Pharmacy 92.6 ml/min; Est GFR (African American) 99.2; Est GFR (Non-African American) 85.5; Potassium 3.7 mmol/L (3.5-5.1)
[2020-03-13 06:53] LABS: Estimated Average Glucose 189 mg/dl; Hemoglobin A1C 8.2 % (4.5-5.6)
[2020-03-13] MEDS: METOPROLOL TARTRATE 50 MG TAB PO SCH (08:39)
[2020-03-13] MEDS ORDERED: hydroCHLOROthiazide 25 MG TAB PO SCH (09:00)
[2020-03-13] MEDS ORDERED: LOSARTAN POTASSIUM 50 MG TAB PO SCH (09:00)
[2020-03-13] MEDS ORDERED: TICAGRELOR 90 MG TAB PO SCH (09:00)
[2020-03-13] MEDS ORDERED: ATORVASTATIN 40 MG TAB PO SCH (09:00)
[2020-03-13] MEDS ORDERED: ASPIRIN 81 MG ECTAB PO SCH (09:00)
--- NOTE | 2020-03-13 09:47 | Cardiology Progress Note ---
Date of Service March 13, 2020 Assessment & Plan (1) Coronary artery disease: -presented with acute coronary syndrome. -3.5 x 18 mm Kem JERRY placed in the proximal RCA. -30% pLAD, 30% pD2, 90% pOM2 (small vessel), 50% dRCA. -continue Lopressor, losartan, Brilinta, aspirin, Lipitor, and hydrochlorothiazide. -follow-up in 1-2 weeks in our [place] office. (2) Hypertension: -improved control compared with his blood pressure at time of presentation. -significant LVH on his echocardiogram. (3) Abnormal ECG: -tracing consistent with left ventricular hypertrophy and significant repolarization changes. -echo confirms significant left ventricular hypertrophy. Admission and Anticipated Discharge Date Admission Date: March 12, 2020 Subjective The patient is resting comfortably in bed without complaints of chest pain or dyspnea. He is anxious for hospital discharge. Physical Exam Physical Exam: In general this is a well-developed well-nourished white male in no acute distress. HEENT exam is negative. Neck is supple with full carotid upstrokes. There are no carotid bruits. Jugular venous pressure is flat at 90. There is no thyromegaly. Cardiovascular exam reveals a regular rhythm with a normal S1 and S2. No S3, S4, or murmurs are noted. Lungs are clear without rales, rhonchi, or wheezes. Abdomen is soft and nontender without b ruits. Extremities reveal a dry dressing on the right wrist. There is no peripheral edema. Results & Data ([facility]) Vital Signs (Past 12 Hours) Vital Signs Temp Pulse Resp BP Pulse Ox 03/13/20 07:47 36.5 C 83 18 143/66 H 96 03/13/20 03:19 36.8 C 70 17 146/90 H 94 03/12/20 23:19 36.8 C 69 17 157/98 H 98 Laboratory Results Telemetry is benign. PG Care Time/CCT Total # of Minutes Spent Total Time Spent with Patient: Total time spent is greater than 50% in coordination of care (as documented) at patient's floor/unit and/or counseling patient: Coding Level of Care Code 29003 Subseq Hosp Care Lvl 3 Diagnoses Coronary artery disease I25.10 Hypertension I10 Hypertension type: unspecified Abnormal ECG R94.31 (1) Hypertension Hypertension type: unspecified Qualified Code(s): I10 - Essential (primary) hypertension
--- NOTE | 2020-03-13 15:45 | Discharge Summary ---
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 This is been going on for the last 2.5 months intermittently worse on exertion. It occurs on the left side of his chest radiating to his back and occasionally to his left arm and hand. Associated headache. Previously intermittent on exertion and would resolve with rest but for the last 1-2 weeks if has been coming on at rest in addition. I was the most severe last night with 10/10 pain that he could not complete his work and had to go home. Last time the pain was 10/10 @ 8am this morning. He is under increased stress recently with his having cancer and 2 young children at home. Principal Diagnosis NSTEMI Discharge Exam Constitutional WD/WN, vitals as above Eyes PERRL, conjunctivae normal, anicteric sclerae ENMT external ear and nose normal, oropharynx normal Neck trachea midline, no thyromegaly Respiratory normal respiratory effort, lungs clear to auscultation Cardiovascular RRR, no murmur, no edema Gastrointestinal (Abdomen) normal bowel sounds, soft, nontender, no hepatosplenomegaly Musculoskeletal no cyanosis or clubbing, extremities motor strength 5/5 Skin no rashes, warm and dry Neurologic patellar DTR's 2+ bilat, sensation intact and PERRL, EOMI, accommodation nl, no face palsy, no dysarthria Psychiatric A+Ox3, euthymic affect Lymphatic no cervical or axillary lymphadenopathy Discharge Data Allergies Allergy/AdvReac Type Severity Reaction Status Date / Time azithromycin Allergy Swelling Unverified 03/14/20 14:10 of Lip/Tongue/Throat Consultations 03/12/20 13:05 ED Decision to Admit Stat 03/12/20 17:24 Consult Cardiac Rehabilitation Routine 03/12/20 17:49 Consult Cardiology Stat Procedures Performed Operation Date: 03/12/20 15:00 Actual Procedures p Drug Eluting Stent SGl Vessel - Chucho Andrews MD s Cath, Left with Cors and Vent - Chucho Andrews MD s Cineradiography w/Routine Exam - Chucho Andrews MD Ordered Studies 03/12/20 12:07 CT head/brain wo con Stat 03/12/20 14:23 CL Cath Imgs for PACS use only Stat Diabetes Follow up Diabetes Follow-up Needed for Newly Diagnosed Diabetes Hospital Course (1) NSTEMI (non-ST elevated myocardial infarction): presented with ongoing chest pain for a few months, but got really intense, 10/10 the night he presented found to have evidence of NSTEMI taken for urgent left heart catheterization: Severe multivessel coronary artery disease -99% proximal RCA (acute culprit). 50 to 60% mid to distal RCA diffuse disease 90% proximal OM 2. Very small left PLB with 95% ostial stenosis. JERRY placed to proximal RCA, successful no chest pain the next day, breathing well will discharge home on aspirin and Brilinta 90mg BID Lipitor 80mg daily. Nitro SL PRN continue on metoprolol and losartan encouraged to stop smoking will need better diabetes control, this is new diagnosis, see below follow up with PCP and with cardiology, cardiac rehab (2) Hypertension: Hydralazine 10 mg IV given in ER with much better control of his blood pressure. resume hydrochlorothiazide, losartan, metoprolol (3) Tobacco use disorder: Declined nicotine patch at the current time Discussed cessation, patient is highly motivated to quit discussed that further smoking will increase risk of SD (4) Diabetes type 2, uncontrolled: new diagnosis, HbA1c is 8.2% provided with meter and strips and lancets wellness educator met with patient, discussed diagnosis, dietary and life style changes, checking sugars will start on Metformin 500mg daily follow up with PCP (5) Coronary artery disease: moderate to severe disease JERRY to RCA if he would have anginal symptoms in the future could consider JERRY to proximal OM Total Time Total Time Spent Total Time Spent (In Minutes): 35 minutes Total Time Includes: Examination of the Patient, Discharge Planning, Medication Reconciliation and Communication With Other Providers (Dr. Lea) Discharge Plan Discharge Items Patient Disposition: Home - Self-Care Reason For Visit: SENT BY DR Jeet KEMP: HIGH BLOOD PRESSURE, CHEST PAIN Discharge Diagnosis: non ST elevation SD (heart attack) severe CAD with drug eluting stent Diabetes type II, new diagnosis Condition on Discharge: Good Goals: continue cardiac medications to reduce risk of another heart attack start on Metformin and make dietary, lifestyle changes to improve blood glucose control Activity: Per Instructions section Lifting: None Bathing: No limitations Sexual Activity: Wait until after follow-up appointment Exercise/Sports: Wait until after follow-up appointment Driving/Machine Use: Resume 1 day after discharge Weightbearing: Full weightbearing Non-emergency contact: Primary Care Provider and International Accounting Manager Call non-emergency contact if: you have any medication questions, your symptoms worsen and you have a fever Follow-up/Referrals: Dwayne Lea MD [Physician] - (needs appt in 1-2 weeks in [place] office) Kristi Cruz DO [Primary Care Provider] - (one week) Diet: Carb Consistent or DM2 and Heart Healthy Addtl Attending Provider Instructions: Medications: all new medications intended to prevent further heart attacks, improve heart function, control diabetes - ASPIRIN: 81mg daily, over the counter - BRILINTA: 90mg twice a day, helps keep stent open in combination with aspirin, will be on this for one year - LIPITOR: 80mg daily, statin medication that controls cholesterol but also stabilizes plaques to prevent future SD can cause muscle aches and pain, discuss with PCP if you experience this - NITRO: take under the tongue as needed for any chest pain - METFORMIN: 500mg daily, new medication for diabetes, start at 500mg daily, will likely increase dose at follow up wait until Tuesday to start taking since you received IV contrast during hospitalization can cause some diarrhea but usually tolerated well at low initial dose Severe coronary disease with one drug eluting stent placed vitals stable, no further chest pain, doing well okay to go home per Dr. Lea you need to take aspirin 81mg daily and Brilinta 90mg twice a day to keep stent open, very important Lipitor will help reduce risk of future heart attack metoprolol and losartan will help preserve heart function, decrease strain on heart take nitro as needed for chest pain, can repeat every 15 minutes for three total doses you need to control your diabetes, HbA1c is 8.2%, average sugars are in the 180's uncontrolled diabetes places you at even higher risk of heart attack take Metformin 500mg twice a day, follow recommendations from diabetes edu cator on reducing carbohydrate intake will give you script for lancets and test strips to check sugar once a day, keep a log, check at random times (morning, after lunch, prior to bed) take results to Dr Cruz you need to stop smoking as this also increases risk of further heart attack Pending Studies at Discharge: No Stand-Alone Forms: My [facility], Smoking Cessation Medications and DC Order Prescriptions: New atorvastatin 40 mg Tablet 80 mg PO QAM 30 Days Qty: 60 RF: 3 nitroglycerin [Nitrostat] 0.4 mg Tablet, Sublingual 0.4 mg sublingual UD PRN (Reason: chest pain) 30 Days Qty: 60 RF: 0 Brilinta 90 mg Tablet 90 mg PO BID 30 Days Qty: 60 RF: 3 aspirin 81 mg Tablet,Delayed Release (Dr/Ec) 81 mg PO QAM 30 Days Qty: 30 RF: 3 metformin 500 mg tablet 500 mg PO DAILY Qty: 30 RF: 3 (DME) blood sugar diagnostic [ActualSun Verio test strips] Strip See Rx Instructions .ROUTE .MEDSUPPLY Qty: 50 RF: 3 (DME) lancets [Mirror DigitalTouch Delica Lancets] 30 gauge misc See Rx Instructions .ROUTE .MEDSUPPLY Qty: 100 RF: 3 Continued metoprolol tartrate 50 mg tablet 50 mg PO BID RF: 0 hydrochlorothiazide 25 mg tablet 25 mg PO DAILY RF: 0 losartan 100 mg tablet 100 mg PO DAILY RF: 0 No Action amlodipine 5 mg tablet 5 mg PO DAILY Qty: 30 RF: 5 Discharge Orders: Discharge Order (Routine); Ordered 03/13/20 Ordered By: Alejandro Patel Admission Data Admit Date/Time: 03/12/20 17:47 Attending Provider: Chucho Andrews Admit Provider: Rey To Primary Care Provider: Kristi Cruz Other Providers: Dwayne Lea ; Alejandro Patel Other Interventions: Discharge Summary Assessment (RN) Last Done: 03/13/20 16:06 Coding Level of Care Code D/C Day Management >30 mins Diagnoses NSTEMI (non-ST elevated myocardial infarction) I21.4 Hypertension I10 Hypertension type: unspecified Tobacco use disorder F17.200 Diabetes type 2, uncontrolled E11.65 Coronary artery disease I25.10
== END 2020-03-13 16:59 | disposition home or self-care (01) | DRG 247 ==
LOC: ED 11:38 → CC 16:03 → 2E 16:03